=== PATIENT | female | born 1970 | race African-American/Black ===

== ENCOUNTER 2022-03-07 10:22 | Outpatient (CLI) | payer OTHER, SELFPAY ==
[2022-03-07 10:38] LABS: Hematocrit 39.1 % (37.0-47.0)
[2022-03-07 10:48] LABS: Anion Gap 9 mmol/L (8-16); Blood Urea Nitrogen 11 mg/dL (7-17); Calcium 9.2 mg/dL (8.4-10.2); Carbon Dioxide 30 mmol/L (22-30); Chloride 101 mmol/L (98-107); Estimated Glomerular Filt Rate > 60; Glucose 136 mg/dL (65-110); Potassium 3.8 mmol/L (3.4-5.0); Sodium 140 mmol/L (137-145)
== END 2022-03-07 10:23 | disposition home or self-care (01) ==
LOC: ANHLAB 10:24
PROVIDERS: PCP Internal Medicine; Visit Provider Obstetrics & Gynecology
DX: E11.9 Type 2 diabetes mellitus without complications (principal); D64.9 Anemia, unspecified; Z01.818 Encounter for other preprocedural examination
CPT/HCPCS: 36415; 80048; 85014; 85018

== ENCOUNTER 2022-03-09 00:54 | Day surgery (SDC) | payer OTHER, SELFPAY ==
[2022-03-06 08:34] VITALS: BMI 23.4
--- NOTE | 2022-03-06 08:41 | PC.NURSE ---
Report to the Outpatient Waiting Room, entrance under the green pavilion located off [facility], at time 0900___ on date _03/09/22_. Planned Procedure Time: _1100_. Time changes happen often and if your time is changed the preop area will call you the afternoon before. - You and your visitor will be asked to self-screen and do not enter if you have any COVID symptoms. - We encourage only one visitor and NO visitors under age 16 are allowed at this time. Your visitor will receive communication by the phone number that is given day of service. - The patient visitor is requested to social distance or may leave the building when not with patient due to restrictions. - A mask is required within the hospital. Patients may have clear liquids (water, carbonated beverages, clear teas, apple juice) until 3 hours prior to surgery with a maximum of 20 ounces. - No food from midnight until time of surgery - Infants may have breast milk until 4 hours before surgery, infant formula 6 hours prior to surgery. - Children will be allowed to drink immediately following surgery. If applicable, please bring a bottle or sippy cup to assist with drinking. Juice, water, soda, and popsicles are readily available. For infants on formula, please bring formula the day of surgery. Pacifiers are allowed. Take the following medications with a SIP of water the morning of surgery: NONE Medications to discontinue per physician MULTIVITAMIN Date to take last dose 03/06/22 Please no make-up, nail egyptian, hairspray, perfume, deodorant, or body powder the day of surgery. No jewelry (including any body piercings) or valuables the day of surgery, leave them at home. Please take a shower or bath the night before, or the morning of, surgery with an antibacterial soap. Wear comfortable, loose fitting clothing. Children are encouraged to wear pajamas. - Jewelry must be removed prior to entering the operating room. Rings and piercings that are not removed may be cut off. - The hospital will not accept responsibility for valuables. - Please leave all valuables, including medications, at home the day of surgery. If you are going home after surgery, a licensed test car driver must drive you home. - NO public transportation without another adult. - We recommend that an adult stay with you for 24 hours following discharge. - We also recommend that you do not drive, make important decision, drink alcoholic beverages, or take any drugs that were not prescribed by your health care provider for at least 24 hours after your discharge time. For Pediatric surgeries, we recommend two adults accompany the child home. Follow any additional instructions given to you from your surgeon. If you or anyone in your household have experienced Covid symptoms in the past week, please notify your surgeon or the nurse liaison at the phone number below for possible testing. Telephone instructions given to _PATIENT_and asked if any additional questions and then verbalized understanding. Patient advised to call surgeon office or pre surgery nurse liaison [phone] if any additional questions.
--- NOTE | 2022-03-08 13:38 | PM.IMHP ---
H&P: HPI History of Present Illness Date/Time: 03/08/22 13:38 51-year-old female presents for evaluation of postmenopausal bleeding. She is bleeding over the past few months where has she had not been for quite a long period of time prior to that. Ultrasound has been performed and revealed thickened endometrial cavity as well as multiple fibroids, laboratory studies consistent with menopause. Also has had a history of hysteroscopy with polyps in the past. Chief Complaint: Postmenopausal bleeding Review of Systems Review of Systems: All systems reviewed & are unremarkable except as noted in HPI and below PMFSH Past Medical History Medical History Anemia rx meds Diabetes rx meds Fibroid, uterine 2006 (4CM) H/O trichomoniasis History of hypertension rx meds HSV-1 infection HSV-2 infection Screening mammogram, encounter for Surgical History Surgical History H/O colposcopy with cervical biopsy (11/26/13) colposcopy emb/ ecc / BENIGN H/O colposcopy with cervical biopsy (03/25/13) colposcopy KAREEM H/O colposcopy with cervical biopsy (01/22/04) colposcopy cervical bx - Neg H/O tubal ligation (04/03/06) Tubal ligation with filshie clips History of hysteroscopy (06/24/20) Hscope D&C History of hysteroscopy (11/07/18) hscope D&C thickened endometrial cavity/ small polyp History of hysteroscopy (12/07/10) hscope D&C abnormal endometrial stripe, polyp S/P breast biopsy, left (08/23/07) left breast mass excision/ u/s guided cyst aspiration/ BENIGN Family History Family History Father Diabetes mellitus Acute myocardial infarction Hypertension Mother Diabetes mellitus Hypertension Sibling Acute myocardial infarction brother Hypertension brother Social History Social History Smoking status: Never smoker Alcohol intake: never Substance use: never Substance use type: does not use 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 Gender identity (if verbalized by the patient): Female Sexual Orientation (if Verbalized by the Patient): Straight or Heterosexual Meds Home Medications and Allergies Home Medications Medication Instructions Recorded Confirmed Type atorvastatin 10 mg tablet 10 mg PO DAILY 07/11/21 03/06/22 History canagliflozin 50 mg-metformin ER 2 tablet PO DAILY 07/11/21 03/06/22 History 500 mg tablet,extended release 24 hr diclofenac sodium 75 mg 75 mg PO BID 07/11/21 03/06/22 History tablet,delayed release lisinopril 20 1 tablet PO DAILY 07/11/21 03/06/22 History mg-hydrochlorothiazide 12.5 mg tablet multivitamin 1 tablet PO DAILY 07/11/21 03/06/22 History sitagliptin 50 mg tablet (Januvia) 50 mg PO DAILY 07/11/21 03/06/22 History ferrous sulfate 325 mg (65 mg 325 mg PO DAILY 03/06/22 03/06/22 History iron) capsule,extended release Allergies Allergy/AdvReac Type Severity Reaction Status Date / Time No Known Allergies Allergy Unverified 07/12/21 10:14 Exam Const: General: cooperative, healthy appearing and comfortable Resp: Effort & Inspection: normal respiratory effort Auscultation: clear to auscultation bilaterally Cardio: Rate: regular rate Rhythm: regular rhythm GI: Inspection: normal to inspection Auscultation: normal bowel sounds : External Female Exam: normal external appearance Speculum Exam - Vagina: normal appearance of the vagina Speculum Exam - Cervix: normal appearance of the cervix Bimanual exam- vagina & uterus: enlarged ( 10-12 week size irregular shaped) Bimanual Exam- Adnexa, other: normal adnexae Assessment and Plan Assessment and plan (1) Postmenopausal bleeding: Code(s): N95.0 - Postmenopausal bleeding Status: Acute (2) Ut
--- NOTE | 2022-03-08 16:06 | WPDANESEPPF ---
Anes - Initial Pre Proc Eval Procedure: Operation Date: 03/09/22 11:00 Proposed Procedures p Hysteroscopy with Dilation and Curettage - Sam Madsen MD Date/Time: 03/08/22 16:06 Surgeon: Sam Madsen MD Pre Op Diagnosis: Endometrial Hyperplasia Patient Data Age: 51 Gender: F Height: 1.6 m Weight: 60 kg Allergies Allergy/AdvReac Type Severity Reaction Status Date / Time No Known Allergies Allergy Unverified 03/09/22 09:33 Home Medications Medication Instructions Recorded Confirmed Type atorvastatin 10 mg tablet 10 mg PO DAILY 07/11/21 03/09/22 History canagliflozin 50 mg-metformin ER 2 tablet PO DAILY 07/11/21 03/09/22 History 500 mg tablet,extended release 24 hr diclofenac sodium 75 mg 75 mg PO BID 07/11/21 03/09/22 History tablet,delayed release lisinopril 20 1 tablet PO DAILY 07/11/21 03/09/22 History mg-hydrochlorothiazide 12.5 mg tablet multivitamin 1 tablet PO DAILY 07/11/21 03/09/22 History sitagliptin 50 mg tablet (Januvia) 50 mg PO DAILY 07/11/21 03/09/22 History ferrous sulfate 325 mg (65 mg 325 mg PO DAILY 03/06/22 03/09/22 History iron) capsule,extended release Patient hx anesthesia problems: none Family hx anesthesia problems: none Results Review: All pre-operative results and documents have been reviewed as part of the pre-operative evaluation. [facility] Past Medical History Medical History (Updated 03/08/22 @ 16:10 by Dillon Stark MD) Anemia rx meds Diabetes rx meds Fibroid, uterine 2006 (4CM) H/O trichomoniasis History of hypertension rx meds HSV-1 infection HSV-2 infection HTN (hypertension) Hyperlipidemia Osteoarthritis Screening mammogram, encounter for Surgical History Surgical History H/O colposcopy with cervical biopsy (11/26/13) colposcopy emb/ ecc / BENIGN H/O colposcopy with cervical biopsy (03/25/13) colposcopy KAREEM H/O colposcopy with cervical biopsy (01/22/04) colposcopy cervical bx - Neg H/O tubal ligation (04/03/06) Tubal ligation with filshie clips History of hysteroscopy (06/24/20) Hscope D&C History of hysteroscopy (11/07/18) hscope D&C thickened endometrial cavity/ small polyp History of hysteroscopy (12/07/10) hscope D&C abnormal endometrial stripe, polyp S/P breast biopsy, left (08/23/07) left breast mass excision/ u/s guided cyst aspiration/ BENIGN Family History Family History Father Diabetes mellitus Acute myocardial infarction Hypertension Mother Diabetes mellitus Hypertension Sibling Acute myocardial infarction brother Hypertension brother Social History Social History Smoking status: Never smoker Alcohol intake: never Substance use: never Substance use type: does not use Living arrangements: with family 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 Gender identity (if verbalized by the patient): Female Sexual Orientation (if Verbalized by the Patient): Straight or Heterosexual Anes - Eval Final PreProcedure Day of Procedure 03/08/22 16:06 Patient weight: normal Heart: regular rate and rhythm Lungs: clear to auscultation and normal air movement Airway: Mallampati scale class II Neurological: alert and oriented Last oral intake: >/= 8 hours ASA classification: III Emergent: no Anesthetic plan: proceed Anesthesia type and monitoring: general GIVS and LMA Results Review: All pre-operative results and documents have been reviewed as part of the pre-operative evaluation. Informed Consent: The patient's anesthetic plan and its attendant risks and benefits were discussed with the patient/family/POA. Questions were solicited and answers provided to the satisfaction of the patient/family/POA.
[2022-03-09] VITALS (7 sets, daily range): BP systolic 151–179; BP diastolic 84–97; PULSE 69–101; RESP 10–20; TEMP 36.2; O2SAT 98–100
--- NOTE | 2022-03-09 09:26 | WPDHPUPDATE1 ---
History and Physical Update Update Date/Time: 03/09/22 09:26 History and Physical has been reviewed, including an updated exam of the patient. There are NO changes in the patient's condition. Risks, benefits, and alternatives have been discussed and questions answered. Patient agrees to proceed with procedure.
[2022-03-09] MEDS: ACETAMINOPHEN 500 MG TABLET 1000 MG PO (09:37)
[2022-03-09] MEDS: LACTATED RINGERS 1,000 ML 30 ML IV CONT (09:45)
[2022-03-09 09:51] LABS: Glucose Point of Care 141 mg/dl (65-105)
--- NOTE | 2022-03-09 11:21 | W.PM.PROC2 ---
Procedure Note - Detailed Date of Procedure 03/09/22 Pre-op Diagnosis 1. Postmenopausal bleeding 2. Endometrial hypertrophy Post-op Diagnosis Same Procedure Performed 1. Hysteroscopy with uterine curettings Surgeon Sam Madsen MD Anesthesia MAC Findings 1. Hysteroscopic exam reveals smooth atrophic appearing endometrial cavity. There does appear to be scarring on half of the cavity which would likely correlate with the thickening noted on ultrasound. No evidence of the etiology of bleeding. Description of Procedure Patient was prepped in usual manner for this procedure. Cervix was dilated to allow the hysteroscope to be placed which revealed findings as noted above. Uterine curettings were obtained with minimal tissue as expected with atrophy noted. No other abnormalities were noted at this point the procedure was considered terminated. Estimated Blood Loss 10 Drains No Packing No Pathology Yes Complications No immediate complications Condition Stable Disposition PACU [facility] Billing Surgery - Charge Forward: Surgery Billing
[2022-03-09 11:26] LABS: Glucose Point of Care 150 mg/dl (65-105)
[2022-03-09] MEDS: KETOROLAC 30 MG/ML VIAL (*BKC) IV PUSH (12:06)
[2022-03-09 12:24] LABS: Glucose Point of Care 157 mg/dl (65-105)
[2022-03-09] MEDS: oxyCODONE HCL (*CRX) 5 MG TAB IR PO (12:29)
--- NOTE | 2022-03-09 13:34 | SUR.PHASEII ---
Patient is just resting while she waits for ride.
== END 2022-03-09 14:12 | disposition home or self-care (01) ==
PROVIDERS: PCP Internal Medicine; Visit Provider Obstetrics & Gynecology
PROC: 0U5B8ZZ Destruction of Endometrium, Via Natural or Artificial Opening Endoscopic (ICD-10-PCS; CPT 58563; principal; 2022-03-09 11:00)
DX: N95.0 Postmenopausal bleeding (principal); N85.8 Other specified noninflammatory disorders of uterus; D64.9 Anemia, unspecified; E11.9 Type 2 diabetes mellitus without complications; I10 Essential (primary) hypertension; E78.5 Hyperlipidemia, unspecified; B00.9 Herpesviral infection, unspecified; Z79.84 Long term (current) use of oral hypoglycemic drugs
CPT/HCPCS: 58558; 82948; 88305; A9270; J1100; J1885; J2250; J2405; J2704; J3010; J7030; J7120

== ENCOUNTER 2022-12-06 09:45 | Outpatient (CLI) | payer OTHER, SELFPAY ==
--- NOTE | ~2022-12-06 | MMUS_ITS ---
EXAMINATION: US breast biopsy RT w image, MM post biopsy invasive RT DATE: 12/06/2022 11:28 (accession [id number]), 12/06/2022 11:18 (accession [id number]) INDICATION: Indeterminate mass in the upper outer quadrant of the right breast. Ultrasound-guided cor e biopsy is requested to evaluate for malignancy. TECHNIQUE AND FINDINGS: The risks and potential benefits of the procedure were discussed with the patient including bleeding and infection. A time out was performed. The skin of the right breast was prepared and draped in usua l sterile fashion. 1% lidocaine was used for superficial anesthesia. 1% lidocaine with epinephrine wa s used for deep anesthesia. Initially, an attempt was made to aspirate the mass using 18-gauge needle. The needle was unable to t o be advanced into the mass due to dense surrounding tissue. A vacuum-assisted biopsy needle was adva nced through to the outer edge of the region of interest from an inferior approach utilizing sonograp hic guidance. A total of three tissue core samples were obtained through the lesion. A tissue marker clip was then placed at the biopsy site. Hemostasis was achieved. A sterile bandage was applied. The patient tolerated procedure well and there was no evidence of immediate complication. The patient was given verbal instructions to return to the Emergency Department in the event of severe breast pa in or rapid breast enlargement. A two view right breast mammogram was obtained to document tissue mar ker clip placement. IMPRESSION: 1. Successful ultrasound-guided vacuum-assisted biopsy of right breast mass with tissue marker placem ent. Reviewed, dictated and finalized at location A. IMPRESSION: 1. Successful ultrasound-guided vacuum-assisted biopsy of right breast mass wit h tissue marker placement.
== END 2022-12-06 09:46 | disposition home or self-care (01) ==
PROVIDERS: PCP Internal Medicine; Visit Provider Surgery
DX: N63.10 Unspecified lump in the right breast, unspecified quadrant (principal)
CPT/HCPCS: 19083; 88305; A4648

== ENCOUNTER 2023-05-28 12:33 | Outpatient (CLI) | payer OTHER, SELFPAY ==
--- NOTE | ~2023-05-28 | MMUS_ITS ---
EXAMINATION: US breast RT limited, MM diagnostic kami BI w nancy HISTORY: Previous benign right breast biopsy. Follow-up. TECHNIQUE: Additional 3-D tomosynthesis images of the breasts were performed and synthetic 2-D images were generated. CAD analysis was submitted and interpreted. High resolution Limited right breast ult rasound was performed. COMPARISON: Comparison to multiple prior studies sequentially, with oldest reviewed study dated 10/05. BREAST PARENCHYMAL COMPOSITION: The breasts are extremely dense, which lowers the sensitivity of mamm ography FINDINGS: MAMMOGRAPHIC FINDINGS: The breasts are stable without evidence for new mass, calcification or suspicious architectural disto rtion. There is a tissue marker in the upper outer quadrant of the right breast. ULTRASOUND: Limited right breast ultrasound: At 10:00, 2 cm from the nipple, there is an oval hypoechoic 7 mm mas s with parallel orientation, heterogeneous internal echogenicity with a few small echogenic internal foci. There is posterior shadowing. Altered morphology is possibly related to interval biopsy. No sig nificant change to size. IMPRESSION: 1. Probable benign right breast mass. Benign results on prior biopsy. 2. Recommend 6 month follow-up Limited right breast ultrasound. BI-RADS CATEGORY 3-PROBABLY BENIGN FINDING Reviewed, dictated and finalized at location A. R REROLL TENDER IMPRESSION: 1. Probable benign right breast mass. Benign results on prior biopsy. 2. Recommend 6 month follow-up Limited right breast ultrasound. BI-RADS CATEGORY 3-PROBABLY BENIGN FINDING
== END 2023-05-28 12:34 | disposition home or self-care (01) ==
PROVIDERS: PCP Internal Medicine; Visit Provider Surgery
DX: N63.11 Unspecified lump in the right breast, upper outer quadrant (principal); R92.8 Other abnormal and inconclusive findings on diagnostic imaging of breast
CPT/HCPCS: 76642; 77062; 77066; G0279